=== PATIENT | male | born 1960 | race Caucasian/White ===

== ENCOUNTER 2020-02-02 13:50 | Inpatient (IN) | payer SELFPAY ==
[~2020-02-02] VITALS: Ht 172.7 cm; Wt 63.5 kg
--- NOTE | 2020-02-02 14:10 | NUR ---
[id number] HOME, FOUND BY PASSED OUT IN A PORCH. C/O GENERALIZED WEAKNESS. BG 122. PATIENT A/OX4, BREATHING EVEN AND UNLABORED, NO SOB NOTED, NO VISIBLE INJURY NOTED.
[2020-02-02] MEDS ORDERED: IV NS 0.9% 1,000 ML BAG IV ONE (15:00)
[2020-02-02 15:05] LABS: BASOPHILS # (AUTO) 0.1 /CMM (0.0-0.2); BASOPHILS % (AUTO) 0.5 % (0.0-2.0); EOSINOPHILS % (AUTO) 0.5 % (0.0-6.0); HEMATOCRIT 44 % (39-51); LYMPHOCYTES # (AUTO) 2.5 /CMM (0.8-4.8); LYMPHOCYTES % (AUTO) 18.7 % (20.0-44.0); MEAN CORPUSCULAR HGB CONC 34 g/dl (31.0-36.0); MEAN CORPUSCULAR VOLUME 100 fL (80-96); MONOCYTES # (AUTO) 0.8 /CMM (0.1-1.30); NEUTROPHILS % (AUTO) 74.3 % (43.0-81.0); PLATELET COUNT (AUTO) 264 /CMM (150-450); WHITE BLOOD COUNT (AUTO) 13.4 K/uL (4.3-11.0)
[2020-02-02 15:30] LABS: CALCIUM, SERUM 8.9 mg/dL (8.5-10.1); CARBON DIOXIDE 25 mmol/L (21-32); CHLORIDE 99 mmol/L (98-107); CREATININE 1.2 mg/dL (0.6-1.3); GLUCOSE 135 mg/dL (74-106); POTASSIUM 3.6 mmol/L (3.5-5.1); SODIUM SERUM 136 mmol/L (136-145); UREA NITROGEN, BLOOD 25 mg/dL (7-18)
[2020-02-02 15:46] LABS: ALANINE AMINOTRANSFERASE 53 U/L (12-78); ALBUMIN 3.7 g/dL (3.4-5.0); ALKALINE PHOSPHATASE 70 U/L (46-116); ASPARTATE AMINOTRANSFERASE 36 U/L (15-37); BILIRUBIN,DIRECT 0.2 mg/dL (0.0-0.2); BILIRUBIN,TOTAL 0.9 mg/dL (0.2-1.0)
[2020-02-02] MEDS ORDERED: ALBU18HF2 IH (17:18)
[2020-02-02] MEDS ORDERED: EZET10TA6 PO (17:18)
[2020-02-02] MEDS ORDERED: VALS1TAB4 PO (17:18)
[2020-02-02] MEDS ORDERED: [UNRECOGNIZED DRUG - OTHER] INH (17:18)
--- NOTE | 2020-02-02 17:29 | NUR ---
PATIENT RESTING, NO DISTRESS NOTED. DENIES PAIN.
--- NOTE | 2020-02-02 17:45 | NUR ---
CHECKING ON STATUS OF COVID RESULT SINCE 1647 LAB SAYS 15-30 MORE MINS PER RAHUL.
[2020-02-02] MEDS ORDERED: MORPHINE SULFATE INJ 2 MG/ML DISP.SYRIN IV PRN (18:00)
[2020-02-02] MEDS ORDERED: HYDROCODONE/APAP 5/325MG TABLET PO PRN (18:00)
[2020-02-02] MEDS ORDERED: Z GUARD REMEDY 2 OZ OINT TP PRN (18:00)
[2020-02-02] MEDS ORDERED: ACETAMINOPHEN 325 MG TABLET PO PRN (18:00)
[2020-02-02] MEDS ORDERED: ALBUTEROL FS 2.5 MG/0.5 ML VIAL.NEB IH PRN (18:00)
[2020-02-02] MEDS ORDERED: TEMAZEPAM 15 MG CAPSULE PO PRN (18:00)
[2020-02-02] MEDS ORDERED: MAG HYDROX/AL HYDROX/SIMETH 30 ML UDC PO PRN (18:00)
[2020-02-02] MEDS ORDERED: MAGNESIUM HYDROXIDE 30 ML UDC PO PRN (18:00)
[2020-02-02] MEDS ORDERED: ONDANSETRON HCL/PF 4 MG/2 ML VIAL IVP PRN (18:00)
--- NOTE | 2020-02-02 18:29 | NUR ---
NEGATIVE COVID RESULT
--- NOTE | 2020-02-02 19:10 | NUR ---
PT AAOX4, PT HAS NO MEDICAL COMPLAINTS AT THIS TIME. PT STATES "I FEEL BETTER". PT DENIES HEAD TRAUMA. BREATHING EVENLY AND UNLABORED ON RA W/ NAD NOTED. PT CONNECTED TO THE MONITOR AND POX
--- NOTE | 2020-02-02 20:06 | NUR ---
NURSE WILL CALL BACK FOR REPORT.
--- NOTE | 2020-02-02 20:12 | NUR ---
REPORT GIVEN TO JEREMY PICKENS FOR BERTHA
[2020-02-02 20:25] VITALS: BP 140/93
--- NOTE | 2020-02-02 20:35 | NUR ---
CARGO HANDLER NOTES Received patient from ER via [facility] accompanied by 2 ER staff. Admitted to Tele 314-2 due to syncope. [place]. Transferred to bed comfortably. Pt noted ambulatory with steady gait. Admission routine done. On tele monitor with NSR noted. On RA, no respiratory distress noted. Pt denies any discomfort at this time. Admission orders noted and carried out. On fall and aspiration precautions. Will continue to monitor accordingly.
[2020-02-02] MEDS: IV NS 0.9% 1,000 ML IV PRN (20:41)
[2020-02-02] MEDS: ENOXAPARIN SODIUM 40 MG/0.4 ML DISP.SYRIN SQ SCH (20:44)
--- NOTE | 2020-02-02 20:44 | NUR ---
PT TRANSFERRED TO ROOM 314-2 PER ACLS PROTOCOL
[2020-02-03] VITALS: BP 96/65
[2020-02-03 04:00] VITALS: BP 121/74
--- NOTE | 2020-02-03 06:24 | NUR ---
RN CLOSING NOTES Pt asleep on bed, on RA. No new complaints made. All nursing needs attended. NSR on tele monitor. Endorsed.
[2020-02-03 07:29] LABS: BASOPHILS # (AUTO) 0.1 /CMM (0.0-0.2); BASOPHILS % (AUTO) 0.7 % (0.0-2.0); EOSINOPHILS % (AUTO) 1.4 % (0.0-6.0); HEMATOCRIT 44 % (39-51); HEMOGLOBIN 14.7 g/dL (13.5-17.5); LYMPHOCYTES # (AUTO) 2.7 /CMM (0.8-4.8); LYMPHOCYTES % (AUTO) 31.8 % (20.0-44.0); MEAN CORPUSCULAR HGB CONC 34 g/dl (31.0-36.0); MEAN CORPUSCULAR VOLUME 100 fL (80-96); MONOCYTES # (AUTO) 0.6 /CMM (0.1-1.30); MONOCYTES % (AUTO) 7.6 % (2.0-12.0); NEUTROPHILS # (AUTO) 4.9 /CMM (1.8-8.9); NEUTROPHILS % (AUTO) 58.5 % (43.0-81.0); PLATELET COUNT (AUTO) 237 /CMM (150-450); RED BLOOD CELL COUNT(AUTO) 4.38 MIL/uL (4.5-6.0); WHITE BLOOD COUNT (AUTO) 8.3 K/uL (4.3-11.0)
--- NOTE | 2020-02-03 07:30 | NUR ---
TALK SHOW HOST NOTE PATIENT IN BED RESTING COMFORTABLY. PATIENT IN NO ACUTE DISTRESS. NO SOB NOTED. PATIENT BREATHING IS EVEN AND UNLABORED. PATIENT ON CARDIAC MONITORING READING SINUS RHYTHM HR 72. PATIENT BED ALARM IS ON. SAFETY PRECAUTIONS IN PLACE. PATIENT BED IS LOCKED AND IN LOWEST POSITION. CALL LIGHT WITHIN REACH. WILL CONTINUE TO MONITOR.
[2020-02-03 07:45] LABS: CALCIUM, SERUM 9.2 mg/dL (8.5-10.1); CREATININE 0.9 mg/dL (0.6-1.3); MAGNESIUM 2.2 mg/dL (1.8-2.4); PHOSPHORUS 2.6 mg/dL (2.5-4.9); POTASSIUM 3.4 mmol/L (3.5-5.1)
[2020-02-03 07:54] LABS: THYROID STIMULATING HORMONE 3.13 uIU/mL (0.358-3.74)
[2020-02-03 08:00] VITALS: BP 137/79
[2020-02-03] MEDS: PANTOPRAZOLE 40 MG TABLET.DR PO SCH (08:26)
[2020-02-03] MEDS: EZETIMIBE 10 MG TABLET PO SCH (08:26)
[2020-02-03 09:09] LABS: CHOLESTEROL 197 mg/dL (<200); HDL CHOLESTEROL 81 mg/dL (40-60); LDL 85 mg/dL (0-99); THYROID STIMULATING HORMONE 3.325 uIU/mL (0.358-3.74); TRIGLYCERIDES 187 mg/dL (30-150)
[2020-02-03] MEDS ORDERED: POTASSIUM CHLORIDE 20 MEQ TAB.PRT.SR PO SCH (09:30)
[2020-02-03 16:09] VITALS: BP 123/87
--- NOTE | 2020-02-03 16:11 | NUR ---
MS RN NOTE SPOKE WITH PATIENTS , UPDATED ON PLAN OF CARE. NOTIFIED NAILA TRACY THAT PATIENTS WOULD LIKE TO SPEAK TO HIM.
--- NOTE | 2020-02-03 17:22 | NUR ---
spoke with patient, he is alert and pleasant. States he lives locally with his in a one story home. adress: [id number] [id number] tel: [phone]. He is ambulatory and independent with adl's and self employed. His pcp is Dr. Galloway in [place]. Patient plan to return home once discharge. Addendum: 02/03/20 at 1723 by SABINE YATES RN Amended: Links added.
[2020-02-03] MEDS: ENOXAPARIN SODIUM 40 MG/0.4 ML DISP.SYRIN SQ SCH (17:45)
[2020-02-03] MEDS: IV NS 0.9% 1,000 ML IV PRN (17:50)
--- NOTE | 2020-02-03 19:22 | NUR ---
MS RN NOTE PATIENT IN BED RESTING COMFORTABLY. PATIENT IN NO ACUTE DISTRESS. NO SOB NOTED. PATIENT BREATHING IS EVEN AND UNLABORED. PATIENT ON CARDIAC MONITORING READING SINUS RHYTHM HR 68. PATIENT KEPT CLEAN, DRY, AND COMFORTABLE THROUGHOUT SHIFT. NEEDS AND CONCERNS ADDRESSED.PATIENT BED ALARM IS ON. SAFETY PRECAUTIONS IN PLACE. PATIENT BED IS LOCKED AND IN LOWEST POSITION. CALL LIGHT WITHIN REACH. WILL ENDORSE CARE TO PM SHIFT FOR BERTHA.
--- NOTE | 2020-02-03 19:59 | NUR ---
RN NOTES RECEIVED PATIENT AWAKE ALERT X4. NO SIGNS OF ACUTE RESPIRATORY DISTRESS NOTED. ON ROOM AIR. DENIES ANY PAIN OF DISCOMFORT AT THIS TIME. SAFETY MEASURES IN PLACE, CALL LIGHT WITH IN EASY REACH. BED IN LOW LOCKED POSITIONED. IV INTACT AND PATENT. NS AT 100 ML/HR INFUSING WELL. ALL NEEDS ANTICIPATED. WILL CONTINUE TO MONITOR ACCORDINGLY.
[2020-02-03 20:00] VITALS: BP 159/105
[2020-02-03] MEDS ORDERED: TEMAZEPAM 15 MG CAPSULE PO PRN (23:00)
[2020-02-04] VITALS (7 sets, daily range): BP systolic 136–157; BP diastolic 88–109
--- NOTE | 2020-02-04 06:19 | NUR ---
RN NOTES ALL NEEDS ATTENDED AND MET. ABLE TO REST AND SLEPT AT INTERVALS. NO SIGNS OF ACUTE RESPIRATORY DISTRESS NOTED. ON ROOM AIR. DENIES ANY PAIN OF DISCOMFORT AT THIS TIME. SAFETY MEASURES IN PLACE, CALL LIGHT WITH IN EASY REACH. BED IN LOW LOCKED POSITIONED. IV INTACT AND PATENT. NS AT 100 ML/HR INFUSING WELL. ALL NEEDS ANTICIPATED. WILL ENDORSE TO AM NURSE FOR CONTINUITY OF CARE.
[2020-02-04] MEDS: PANTOPRAZOLE 40 MG TABLET.DR PO SCH (06:38)
[2020-02-04] MEDS: IV NS 0.9% 1,000 ML IV PRN (07:01)
[2020-02-04 07:04] LABS: CALCIUM, SERUM 8.5 mg/dL (8.5-10.1); CREATININE 0.7 mg/dL (0.6-1.3); POTASSIUM 3.7 mmol/L (3.5-5.1)
--- NOTE | 2020-02-04 07:12 | NUR ---
MS RN NOTES PATIENT IN BED ALERT ORIENTED X 4. NO ACUTE DISTRESS NOTED. NO SOB NOTED. DENIED ANY PAIN. IV ACCESS PATENT AND INTACT, NO REDNESS, NO SWELLING NOTED. HEAD OF BED ELEVATED. SAFETY MEASURES IN PLACE. CALL LIGHT WITHIN REACH. WILL CONTINUE TO MONITOR ACCORDINGLY.
[2020-02-04] MEDS: EZETIMIBE 10 MG TABLET PO SCH (08:44)
--- NOTE | 2020-02-04 10:42 | NUR ---
MS RN NOTES PATIENT SEEN AND EVALUATED BY DR NAILA TRACY WITH NEW ORDER MADE, NOTED AND CARRIED OUT
--- NOTE | 2020-02-04 16:13 | NUR ---
MS LUNADIELECTRIC TESTING MACHINE OPERATOR NOTES PATIENT DISCHARGED HOME WITH STABLE VITAL SIGNS. NO ACUTE DISTRESS NOTED, BREATHING UNLABORED. NO SOB NOTED. NO DIZZINESS NOTED. DENIED ANY PAIN. DISCHARGE INSTRUCTIONS GIVEN TO THE PATIENT, INCLUDING FOLLOW UP WITH PRIMARY DOCTOR AND PRESCRIPTION, VERBALIZED UNDERSTANDING. ALL BELONGINGS ACCOUNTED FOR. ASSISTED TO THE LOBBY, PICKED UP VIA PRIVATE CAR ACCOMPANIED BY IN STABLE CONDITION. Addendum: 02/04/20 at 1635 by VONNIE RIOS RN ADDENDUM: IV ACCESS REMOVED, NO REDNESS, NO BLEEDING , NO SWELLING NOTED.
== END 2020-02-04 16:15 | disposition home or self-care (01) | DRG 641 ==
LOC: ER 13:57 → TELE 19:57 → MED 02-03 12:50
PROVIDERS: ADMIT Nurse Practitioner Acute Care; ATTEND Nurse Practitioner Acute Care
DX: E86.0 Dehydration (principal); E78.5 Hyperlipidemia, unspecified; I10 Essential (primary) hypertension; J44.9 Chronic obstructive pulmonary disease, unspecified; R73.9 Hyperglycemia, unspecified; R79.89 Other specified abnormal findings of blood chemistry
CPT/HCPCS: 36415; 70450-TC; 71045-TC; 80048-TC; 80061-TC; 80076-TC; 82962-TC; 83735-TC; 84100-TC; 84439-TC; 84443-TC; 84484-TC; 85025-TC; 85730-TC; 87081-TC; 93307-TC; 97116-TC; 97530-TC; C9803; G0378; J1650; J7030